=== PATIENT | male | born 1985 | race Caucasian/White ===

== ENCOUNTER 2020-08-22 00:10 | Emergency (ER) | payer MEDICAID ==
[~2020-08-22] VITALS: Ht 180.3 cm; Wt 68.8 kg
[2020-08-22 00:24] VITALS: BP 103/64
== END 2020-08-22 03:15 | disposition left against medical advice (07) ==
LOC: ER 00:12
DX: S60.451A Superficial foreign body of left index finger, initial encounter (principal); Z53.21 Procedure and treatment not carried out due to patient leaving prior to being seen by health care provider; W56.52XA Struck by other fish, initial encounter; Y93.89 Activity, other specified; Y92.89 Other specified places as the place of occurrence of the external cause; Y99.8 Other external cause status